=== PATIENT | female | born 1985 | race Caucasian/White ===

== ENCOUNTER 2017-11-25 08:56 | Inpatient (IN) | payer BC ==
[2017-11-25] MEDS ORDERED: Glycerin ADULT SUPP PR PRN (10:12)
[2017-11-25] MEDS ORDERED: Acetaminophen TAB* 325 MG PO PRN (10:12)
[2017-11-25] MEDS ORDERED: Dibucaine 1% 28.35 GM TUBE PR PRN (10:12)
[2017-11-25] MEDS ORDERED: Tetan/Diph/Pertus SYR(Tdap)* 0.5 ML SYR(BOOSTRIX) use SYR IM ONE (10:12)
[2017-11-25] MEDS ORDERED: Witch Hazel PAD* JAR TOPICAL PRN (10:12)
[2017-11-25] MEDS ORDERED: Ibuprofen TAB* 600 MG PO PRN (10:12)
[2017-11-25] MEDS ORDERED: Influenza VAC *QUAD* 2017-18* 0.5 ML SYRINGE IM ONE (10:13)
[2017-11-25] MEDS: Docusate CAP* 100 MG PO SCH ×2 (14:49→21:47)
[2017-11-26 08:00] VITALS: BP 106/66
[2017-11-26 08:04] LABS: ABS Basophils 0.1 10^3/ul (0-0.2); ABS Eosinophils 0.1 10^3/ul (0-0.6); ABS Monocytes 0.6 10^3/ul (0-0.8); ABS Neutrophils 7.3 10^3/ul (1.5-7.7); ABS Nucleated RBC 0 10^3/ul; Eosinophil % 0.7 % (0-6); Hematocrit 38 % (35-47); Hemoglobin 13.2 g/dl (12.0-16.0); Mean Corpuscular HGB Conc 35 g/dl (31-36); Mean Corpuscular Hemoglobin 31 pg (27-31); Mean Corpuscular Volume 88 fL (80-97); Mean Platelet Volume 8 um3 (7.4-10.4); Nucleated Red Blood Cells % 0; Platelet Count 226 10^3/ul (150-450); Red Blood Count 4.29 10^6/ul (4.0-5.4); Red Cell Distribution Width 13 % (10.5-15); White Blood Count 10.1 10^3/ul (3.5-10.8)
[2017-11-26] MEDS ORDERED: Ferrous Gluconate TAB* 324 MG TAB PO SCH (09:00)
[2017-11-26] MEDS: Docusate CAP* 100 MG PO SCH (10:10)
== END 2017-11-26 14:52 | disposition home or self-care (01) | DRG 560 ==
LOC: MCHOBOUT 08:56 → MCHOB 09:07
PROVIDERS: ADMIT Midwife; ATTEND Midwife
PROC: 10907ZC Drainage of Amniotic Fluid, Therapeutic from Products of Conception, Via Natural or Artificial Opening (ICD-10-PCS; principal; 2017-11-25)
PROC: 4A1HX4Z Monitoring of Products of Conception, Cardiac Electrical Activity, External Approach (ICD-10-PCS; 2017-11-25)
PROC: 10E0XZZ Delivery of Products of Conception, External Approach (ICD-10-PCS; 2017-11-25)
DX: O62.3 Precipitate labor (principal); Z37.0 Single live birth; Z3A.38 38 weeks gestation of pregnancy
CPT/HCPCS: 36415; 85025; 87641; 90715; A9270-GY

== ENCOUNTER 2019-10-29 05:57 | Inpatient (IN) | payer BC, OTHER ==
[2019-10-29] MEDS ORDERED: Lactated Ringers 1000 ML Bag* 1,000 ML IV ONE (06:16)
[2019-10-29] MEDS ORDERED: Penicillin G Potassium IV* 5,000,000 UNITS in NS 0.9% 100 ML* 100 ML IVPB ONE (06:16)
--- NOTE | 2019-10-29 06:32 | HP ---
General Information - Reason for Visit IUP at 36-04/06 in labor - General Information Maternal Age: 32 Grav: 5 - 2113 Para: 3 SAB: 1 IEA: 0 Estimated Due Date: 11/21/19 Determined By: LMP Gestational Age in Weeks/Days: 36-04/06 Maternal Blood Type and Rh: O Positive - Results this Serology/RPR Result: Non-Reactive Rubella Result: Immune HBsAg Result: Negative HIV Result: Negative Past Medical History Delivery History: Hx Uncomplicated Vaginal Delivery Delivery History Comment: 12/2013 8lbs 8oz male at 36 weeks. Delivered at [facility] [place] by Varsha Peres CNM. 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 Delivered at [facility] [place] by Shabnam Munroe CNM. 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 Delivered at [facility] [place] by Radha Goel LM Pertinent Past Medical History: See Records Past Medical History Comment: MRSA 2009 Pertinent Past Surgical History: None Pertinent Family History: See Records Family History Comment: PGM: Arthritis PGF: Heart disease MGM: COPD, Osteoporosis, uterine cancer. due to sepsis MGF: from MVA - Antepartal Records Antepartal Records: Reviewed, Complicated by: - unknown GBS Review of Systems Constitutional: Uncomfortable - with UCs CV Complaint: No Respiratory: Shortness of Breath: No Gastrointestinal: No Nausea/Vomiting, Normal Bowel Movement Genitourinary: No Dysuria, No Bleeding, No Leaking Fluid Musculoskeletal: No Complaint, No Epigastric Pain Neurological: No Headache, No Visual Changes Movement: Normal Exam Allergies/Adverse Reactions: Allergies No Known Allergies Allergy (Verified 11/25/17 14:15) BP 138/77 HR 74 SpO2 100% on RA - Measurements Height: 5 ft 3.5 in Weight: 148 lb Body Mass Index (BMI): 25.8 Pre- Weight: 128 lb - Exam Breast: Breast Exam Deferred CVA: No CVA Tenderness Extremities: No Edema Heart: Normal Rhythm/Heart Sounds HEENT: No Significant Findings Lungs: Clear Bilaterally Rectal: Rectal Exam Deferred Reflexes: DTR 2+ Thyroid: No Thyromegaly - Abdominal Exam Abdomen Exam: Non-Tender, Fundal Height Consistent with Dates - Ultrasound/Biophysical Profile Ultrasound Status: Not Done Targeted Exam Findings See L&D Outpatient Visit Provider Note for Findings: N/A Estimated Weight: 6lbs by Andrews Cervical Exam: 5cm Effacement: 80% Station: -1 Presenting Part: Vertex Membrane Status: Intact Bleeding/Discharge: Bloody Show EFM Findings - External Monitor Findings Baseline Heart Rate: 130 External Monitor Findings: Accelerations Present, No Pattern of Variable or Late Decelerations, Variability Moderate, Baseline Stable, Accelerations Absent External Monitor Findings Comment: No evidence of metabolic acidemia Contractions: Regular Contraction Frequency: q 2-3 min Assessment/Plan - Assessment IUP at 36-5/7 in labor - Obstetrical Risk Factors Obstetrical Risk Factors: GBS Unknown, - Plan Plan: Admit - Anticipate Vaginal Delivery Plan Comment: Discussed penicillin prophylaxis in presence unknown GBS. Pt and FOB agree. Will initiate IV access and start antibiotics. Anticipate progression to - Date/Time of Admission Date of Admission: 10/29/19 Time of Admission: 06:08
[2019-10-29 06:48] LABS: ABS Eosinophils 0.1 10^3/ul (0-0.6); ABS Lymphocytes 1.7 10^3/ul (1.0-4.8); ABS Monocytes 0.9 10^3/ul (0-0.8); ABS Neutrophils 19.2 10^3/ul (1.5-7.7); Eosinophil % 0.2 %; Hematocrit 41 % (35-47); Hemoglobin 14.6 g/dL (12.0-16.0); Lymphocyte % 7.8 %; Mean Corpuscular HGB Conc 35 g/dL (31-36); Mean Corpuscular Hemoglobin 31 pg (27-31); Mean Corpuscular Volume 88 fL (80-97); Mean Platelet Volume 8.4 fL (7.4-10.4); Platelet Count 261 10^3/uL (150-450); Red Blood Count 4.74 10^6 /uL (3.70-4.87); Red Cell Distribution Width 13 % (10-15); White Blood Count 21.8 10^3/uL (3.5-10.8)
[2019-10-29] MEDS ORDERED: Penicillin G Potassium IV* 3,000,000 UNITS in NS 0.9% 100 ML* 100 ML IVPB SCH (08:00)
--- NOTE | 2019-10-29 08:24 | PROCNOTE ---
[facility]: Delivery Note - Delivery A Date of : 10/29/19 Time of : 07:49 [place] Sex: Female Score 1 Minute: 3 Score 5 Minutes: 5 - Score 10 Minutes 8 Gestational Age in Weeks and Days at Delivery: 36 Weeks and 5 Days Delivery Method: Spontaneous Vaginal Labor: Spontaneous Did Patient attempt ?: N/A, No Previous Amniotic Fluid: Clear Estimated Blood Loss: 250 Anesthesia/Analgesia: None Delivered By: Nitin Buenrostro - Nursery Level of Nursery: Regular/Bedside - Perineum Perineal Injury: None/Intact Perineal Repair: None - Events Delivery Events of Note: Partial Course of Antibiotics - Initial dose of Pencillin given for unknown GBS status - Additional Delivery Notes Additional Delivery Notes: Pt admitted in labor with expected progression to complete. Amnitomy to clear fluid with onset maternal pushing. Length of labor 2 hours, 54 min. Pushed x 3 minutes. liveborn female. Slow, controlled delivery of head. OA to FELIX. Shoulders followed easily. initially vigrous then stunned. Cord clamped x 2 and cut by FOB. moved to warmer for further evaluation by special care nurses and neonatology. Apgars 3/5/8 at 1/5/10 minutes respectively. [place] returned to mother for transition period. Will continue to monitor closely per protocol. Spontaneous delivery intact placenta. Membranes complete. Fundus firm to massage with minimal bleeding. Perineum intact. No repair needed as above. EBL 250mL. At time of note mother and infant in stable condition. Planning to breast feed.
[2019-10-29] MEDS ORDERED: Witch Hazel PAD* JAR TOPICAL PRN (08:25)
[2019-10-29] MEDS ORDERED: Acetaminophen TAB* 325 MG PO PRN (08:25)
[2019-10-29] MEDS ORDERED: Dibucaine 1% 28.35 GM TUBE PR PRN (08:25)
[2019-10-29] MEDS ORDERED: Glycerin ADULT SUPP PR PRN (08:25)
[2019-10-29] MEDS ORDERED: Simethicone TAB* 80 MG TAB.CHEW PO SCH (08:30)
[2019-10-29] MEDS: Docusate CAP* 100 MG PO SCH ×3 (09:46→20:48)
[2019-10-29] MEDS: Ibuprofen TAB* 600 MG PO SCH (10:45)
[2019-10-30 05:26] LABS: ABS Basophils 0.2 10^3/ul (0-0.2); ABS Eosinophils 0.2 10^3/ul (0-0.6); ABS Lymphocytes 3.4 10^3/ul (1.0-4.8); ABS Monocytes 0.8 10^3/ul (0-0.8); ABS Neutrophils 13.7 10^3/ul (1.5-7.7); Eosinophil % 1.3 %; Hematocrit 40 % (35-47); Hemoglobin 13.7 g/dL (12.0-16.0); Lymphocyte % 18.6 %; Mean Corpuscular HGB Conc 34 g/dL (31-36); Mean Corpuscular Hemoglobin 30 pg (27-31); Mean Corpuscular Volume 88 fL (80-97); Mean Platelet Volume 7.9 fL (7.4-10.4); Platelet Count 266 10^3/uL (150-450); Red Blood Count 4.53 10^6 /uL (3.70-4.87); Red Cell Distribution Width 13 % (10-15); White Blood Count 18.3 10^3/uL (3.5-10.8)
[2019-10-30] MEDS ORDERED: Ferrous Gluconate TAB* 324 MG TAB PO SCH (09:00)
[2019-10-30] MEDS: Docusate CAP* 100 MG PO SCH ×3 (09:35→20:58)
[2019-10-30] MEDS: Ibuprofen TAB* 600 MG PO SCH ×4 (09:37→21:00)
[2019-10-31] MEDS: Ibuprofen TAB* 600 MG PO SCH ×3 (03:57→16:17)
[2019-10-31 07:33] VITALS: BP 109/72
[2019-10-31] MEDS: Docusate CAP* 100 MG PO SCH ×2 (10:30→16:17)
== END 2019-10-31 16:30 | disposition home or self-care (01) | DRG 807 ==
LOC: MCHOBOUT 05:57 → MCHOB 06:08
PROVIDERS: ADMIT Midwife; ATTEND Midwife
PROC: 10E0XZZ Delivery of Products of Conception, External Approach (ICD-10-PCS; principal; 2019-10-29)
PROC: 10907ZC Drainage of Amniotic Fluid, Therapeutic from Products of Conception, Via Natural or Artificial Opening (ICD-10-PCS; 2019-10-29)
DX: O60.10X0 Preterm labor with preterm delivery, unspecified trimester, not applicable or unspecified (principal); Z37.0 Single live birth; Z3A.36 36 weeks gestation of pregnancy
CPT/HCPCS: 36415; 85025; 86850; 86900; 86901; A9270-GY; J2540